=== PATIENT | female | born 1995 | race Caucasian/White ===

== ENCOUNTER 2016-09-15 19:56 | Emergency (ER) | payer BC, OTHER ==
[~2016-09-15] VITALS: Ht 182.9 cm; Wt 158.0 kg
[2016-09-15 20:04] VITALS: TEMP 36.6; Ht 182.9 cm; Wt 158.0 kg
[2016-09-15] MEDS ORDERED: SODIUM CHLORIDE 0.9% 1000ML 1,000 ML IV STA ×2 (20:32)
[2016-09-15] MEDS ORDERED: ONDANSETRON INJ 2 MG/ML 2 ML VIAL IV STA (20:32)
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
[2016-09-15] MEDS ORDERED: OPTIRAY 320 IV PRN (20:45)
[2016-09-15] MEDS ORDERED: LIDOCAINE/EPINEPHRINE 1% 20 ML VIAL INFIL ONE (20:45)
[2016-09-15] MEDS ORDERED: MoRPHine SULFATE 4 MG/ML 1 ML CARP\\VIAL IV PRN (20:45)
[2016-09-15] MEDS ORDERED: BCPILLS PO (21:01)
[2016-09-15] MEDS ORDERED: CETI10TA84 PO (21:01)
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
[2016-09-15 21:27] LABS: HEMATOCRIT 38.4 % (37-47); MEAN CELL VOLUME 81.4 fL (80-100); MEAN CORPUSCULAR HEMOGLOBIN 28.2 pg (25-34); MEAN CORPUSCULAR HGB CONC 34.6 g/dl (32-36); MEAN PLATELET VOLUME 10.6 fL (7.4-10.4); PLATELET COUNT 235 K/uL (130-400); RED BLOOD COUNT 4.72 M/uL (4.2-5.4); WHITE BLOOD COUNT 18.41 K/uL (4.8-10.8)
[2016-09-15 21:43] LABS: BUN/CREATININE RATIO 15.3 (10-20); CALCIUM 9.5 mg/dl (8.5-10.1); CREATININE 0.88 mg/dl (0.60-1.20); POTASSIUM 3.8 mmol/L (3.5-5.1)
[2016-09-15 21:45] LABS: BASO % 0.1 %; BASO ABS # 0.02 K/uL (0-0.2); COMPLETE YES; EOS % 0.2 %; IG% 0.3 %; LYMPH % 8.4 %; LYMPH ABS # 1.54 K/uL (1.2-3.4); MONO % 6.1 %; NEUT % 84.9 %
[2016-09-15 21:46] LABS: PROTHROMBIN TIME (PATIENT) 10.8 SECONDS (9.0-12.0)
[2016-09-15 22:06] LABS: PREG INTERNAL NEGATIVE QC NEG CLEAR BACKGROUND; PREG INTERNAL POSITIVE QC POS CONTROL LINE
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
[2016-09-15] MEDS ORDERED: CEPHALEXIN MONOHYDRATE 250 MG CAP PO ONE (23:15)
[2016-09-15] MEDS ORDERED: OXYCODONE IR HOME PACK PO ONE (23:15)
[2016-09-15] MEDS ORDERED: CEPHALEXIN 500MG HOME PACK 1 EA BTL PO ONE (23:15)
[2016-09-15] MEDS ORDERED: ONDANSETRON HOME PACK 4MG OD TAB PO ONE (23:15)
[2016-09-15 23:19] LABS: URINE APPEARANCE CLEAR (CLEAR); URINE COLOR DK YELLOW; URINE EPITHELIAL CELL AUTO >30 /lpf (0-5); URINE NITRITE NEG (NEG); URINE SPECIFIC GRAVITY > 1.045 (1.000-1.030); UROBILINOGEN NEG (NEG)
[2016-09-15] MEDS ORDERED: CEPH500C2 PO (23:19)
[2016-09-15] MEDS ORDERED: ONDA4TAB10 SL (23:19)
[2016-09-15] MEDS ORDERED: OXYC1TAB3 PO (23:19)
[2016-09-15 23:29] LABS: MANUAL MICROSCOPIC REQUIRED? NO; REVIEW REQ? YES; URINE BILIRUBIN NEG (NEG)
[2016-09-15 23:40] VITALS: BP 138/89; PULSE 87; O2SAT 97
[2016-09-15 23:50] LABS: URINE PATH CASTS 1-5 GRANULAR CASTS /lpf (0)
[2016-10-10] MEDS ORDERED: LVNIS150 SQ (13:53)
[2016-10-10] MEDS ORDERED: CMD5 PO (13:53)
== END 2016-09-15 23:41 | disposition home or self-care (01) ==
LOC: EDBD 19:56 → C.EDB 19:59
DX: S20.212A Contusion of left front wall of thorax, initial encounter (principal); S30.1XXA Contusion of abdominal wall, initial encounter; S27.329A Contusion of lung, unspecified, initial encounter; S81.812A Laceration without foreign body, left lower leg, initial encounter; S16.1XXA Strain of muscle, fascia and tendon at neck level, initial encounter; S32.018A Other fracture of first lumbar vertebra, initial encounter for closed fracture; S32.028A Other fracture of second lumbar vertebra, initial encounter for closed fracture; V43.52XA Car driver injured in collision with other type car in traffic accident, initial encounter; Z79.3 Long term (current) use of hormonal contraceptives

== ENCOUNTER 2016-10-09 18:58 | Inpatient (IN) | payer OTHER, BC ==
[~2016-10-09] VITALS: Ht 182.9 cm; Wt 158.2 kg
[~2016-10-09 18:58] MED LIST changes: -CMD5 PO; -IBUP-1050 PO; -LVNIS150 SQ; -OPTIRAY 320 IV PRN
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
[2016-10-09] MEDS ORDERED: IBUP-1050 PO (20:04)
[2016-10-09 21:10] LABS: HEMATOCRIT 34.7 % (37-47); MEAN CELL VOLUME 82.4 fL (80-100); MEAN CORPUSCULAR HEMOGLOBIN 28.7 pg (25-34); MEAN CORPUSCULAR HGB CONC 34.9 g/dl (32-36); MEAN PLATELET VOLUME 10.7 fL (7.4-10.4); PLATELET COUNT 204 K/uL (130-400); RED BLOOD COUNT 4.21 M/uL (4.2-5.4)
[2016-10-09 21:27] LABS: ALT/SGPT 20 U/L (12-78); BLOOD UREA NITROGEN 10 mg/dl (7-18); CALCIUM 9.5 mg/dl (8.5-10.1); CARBON DIOXIDE 21 mmol/L (21-32); CHLORIDE 108 mmol/L (98-107); CREATININE 0.72 mg/dl (0.60-1.20); GLUCOSE 87 mg/dl (70-99); SODIUM 142 mmol/L (136-145)
[2016-10-09 21:32] LABS: ALB/GLOB RATIO 0.8 (0.9-2); ALKALINE PHOSPHATASE 76 U/L (45-117); AST/SGOT 11 U/L (15-37)
[2016-10-10] MEDS ORDERED: CETIRIZINE HCL 10 MG TAB PO PRN (00:30)
[2016-10-10] MEDS ORDERED: ONDANSETRON INJ 2 MG/ML 2 ML VIAL IV PRN (00:30)
[2016-10-10] MEDS ORDERED: MAGNESIUM HYDROXIDE SUSP 30 ML UDC PO PRN (00:30)
[2016-10-10] MEDS ORDERED: ACETAMINOPHEN 325 MG TAB PO PRN (00:30)
[2016-10-10] MEDS ORDERED: POLYETHYLENE (MIRALAX) 17 GM PACK PO PRN (00:30)
[2016-10-10] MEDS ORDERED: MoRPHine SULFATE 2 MG/ML CARP IV PRN (00:30)
[2016-10-10] MEDS ORDERED: ZOLPIDEM TARTRATE 5 MG TAB PO PRN (00:30)
[2016-10-10] MEDS ORDERED: ALUMINUM/MAGNESIUM/SIMETH (MAALOX MAX) 30 ML UDC PO PRN (00:30)
[2016-10-10 01:46] VITALS: BP 159/101; PULSE 97; TEMP 36.8; O2SAT 99; Ht 182.9 cm; Wt 158.2 kg
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
[2016-10-10] MEDS ORDERED: ENOXAPARIN 150 MG/1ML SYR SQ ONE (02:00)
[2016-10-10 03:26] VITALS: BP 116/66; PULSE 104; TEMP 36.9; O2SAT 97
[2016-10-10 04:00] VITALS: O2SAT 97
--- NOTE | 2016-10-10 07:15 | DIAGNOSTIC IMAGING REPORT ---
ULTRASOUND BILATERAL LOWER EXTREMITY VENOUS CLINICAL HISTORY: Pulmonary embolus. COMPARISON STUDY: No priors. TECHNIQUE: Real-time, grayscale, and color Doppler sonography of the deep veins of the right and left lower extremity was performed from the inguinal crease to the calf. Compression and augmentation were utilized. FINDINGS: There is no sonographic evidence of deep venous thrombosis identified in the right or left lower extremity. The common femoral, superficial femoral, and popliteal veins are patent and normally compressible bilaterally. The greater saphenous vein and the profunda femoris vein at the junction with the common femoral vein are clear in both legs. The visualized calf veins are patent bilaterally. IMPRESSION: There is no sonographic evidence of deep venous thrombosis identified in the right or left lower extremity. Electronically signed by: Sarkis Hampton M.D. 10/10/2016 7:13 AM Dictated Date/Time: 10/10/2016 7:13 AM
[2016-10-10 10:06] LABS: PROTHROMBIN TIME (PATIENT) 11.2 SECONDS (9.0-12.0)
[2016-10-10 12:19] VITALS: BP 152/88; PULSE 95; TEMP 36.7; O2SAT 98
[2016-10-10] MEDS ORDERED: CMD5 PO (13:53)
[2016-10-10] MEDS ORDERED: LVNIS150 SQ (13:53)
--- NOTE | 2016-10-10 14:00 | Discharge Instructions ---
Discharge Instructions Admission Reason for Admission: Pulmonary Emboli Discharge Discharge Diagnosis / Problem: (1) Pulmonary emboli VTE Date & Time Date of VTE Diagnosis: Oct 09, 2016 Time of VTE Diagnosis: 18:32 Discharge Goals Goal(s): Decrease discomfort, Improve function, Increase independence Activity Recommendations Activity Limitations: resume your previous activity (with light lifting and no major exertion for the next 1-2 weeks) . Instructions / Follow-Up Instructions / Follow-Up You will take 10mg of coumadin prior to leaving the hospital today. Do not take any more coumadin today. You will need to take another lovenox injection tonight, roughly 12 hours after the last injection that you had at the hospital today. Tomorrow you will continue taking the lovenox every 12 hours. You will take another 10mg coumadin tomorrow. On Thursday, you should have your labs drawn in the morning. They will call me with the results and I will call you to inform you what dosing you will take on Thursday. If you do not hear from me by 2pm, please call [facility] and ask for them to page me directly. Dr. Jimenes next week Medication Instructions: * Warfarin is a medicine prescribed to prevent blood clots * Warfarin will thin your blood and help prevent new clots * Take your medications exactly as directed * Never skip a dose. Never take a double dose. If you miss a dose, take it as soon as you remember * It is important for your doctor to monitor your prothrombin time (PT). This is a lab test * Keep your appointment for lab tests Risk of Adverse Drug Reactions and Interactions: * Warfarin increases your risk of bleeding * The food you eat and other medications you take can affect how Warfarin works in your body * Ask your doctor about daily aspirin therapy * It is very important to talk with your doctor about all of the other medicines , antibiotics, vitamins or herbal products that you are taking * All of your medication must be approved by your doctor, including new medicines, as well as medicines you have taken before you started taking Warfarin Diet: * In order for Warfarin to work properly, it is important to keep your intake of Vitamin K as consistent as possible * You should avoid any sudden change in Vitamin K intake * Report any significant changes in your diet or weight to your doctor Call your Primary Care doctor if you experience any of the following: * Swelling or Pain in your leg * Sudden, continuous pain deep in a muscle * Pain that worsens when you are active or when you stand still for a long time * Chest Pain * Sudden Shortness of Breath * Rapid or pounding heart beat * Fainting * Dizziness * Cough with blood or bloody sputum * Sweating more than normal * Bruises * Heavy or uncontrolled bleeding * Blood in your urine, stool or vomit * Black or tarry stools Caring for Your Self at Home: * Avoid sitting, standing or lying down for long periods without moving your legs and feet * When traveling by car, stop to get out and move around at least once every 3 hours * On long airplane, train or bus rides, get up and move around when possible * If you can't get up, wiggle your toes and tighten your calves to keep your blood moving Follow Up: It is important for you to keep your follow up appointments with your medical provider. Current Hospital Diet Patient's current hospital diet: Regular Diet Discharge Diet Recommended Diet: Regular Diet Pending Studies Studies pending at discharge: yes (partial hypercoag panel) List of pending studies: von Willebrand factor, Factor V panel Medical Emergencies . Who to Call and When: Medical Emergencies: If at any time you feel your situation is an emergency, please call 911 immediately. . Non-Emergent Contact Non-Emergency issues call your: Primary Care Provider . . "Provider Documentation" section prepared by Roasnne Gaitan. VTE Core Measure Inpt VTE Proph given/why not?: Enoxaparin (Lovenox)SQ, Warfarin (Coumadin) Reason no anticoag overlap I/P: Treatment provided - N/A Reason no anticoag overlap @DC: Treatment provided - N/A
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
[2016-10-10] MEDS ORDERED: NURSING VERBAL MED ORDER ONE (14:30)
[2016-10-10] MEDS ORDERED: WARFARIN SOD 5 MG TAB PO SCH ×2 (16:00)
[2016-10-10] MEDS ORDERED: ENOXAPARIN 150 MG/1ML SYR SQ SCH (18:00)
--- NOTE | 2016-10-12 14:19 | Progress Note ---
Progress Note INR 1.1 on 10mg coumadin since d/c Continue 10mg coumadin and lovenox Repeat INR tomorrow, 10/[address] Jimenes's office Pt informed that if she does not hear from anyone tomorrow, to call Dr. Jimenes's office in the afternoon.
[2016-10-17 17:38] LABS: APTT 26 sec (22-34); F8 ACT 199 % (50-180); RISTOCETIN COFACTOR** 4459X 135 % (42-200)
== END 2016-10-10 15:10 | disposition home or self-care (01) | DRG 176 ==
LOC: ENRESERVTM → ENRESERVDT → C.EDB 19:00 → C.2T 10-10 00:31
PROVIDERS: ADMIT Internal Medicine; ATTEND Family Medicine
DX: I26.99 Other pulmonary embolism without acute cor pulmonale (principal); Z68.42 Body mass index [BMI] 45.0-49.9, adult; E66.01 Morbid (severe) obesity due to excess calories; Z79.3 Long term (current) use of hormonal contraceptives; Z83.2 Family history of diseases of the blood and blood-forming organs and certain disorders involving the immune mechanism

== ENCOUNTER → 2016-10-09 | Outpatient (CLI) | payer OTHER, BC ==
[~2016-10-09] MED LIST: BCPILLS PO; CEPH500C2 PO; CETI10TA84 PO; CMD5 PO; IBUP-1050 PO; LVNIS150 SQ; ONDA4TAB10 SL; OPTIRAY 320 IV PRN; OXYC1TAB3 PO
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
== END | disposition home or self-care (01) ==
LOC: C.CTS 18:02
PROVIDERS: ATTEND Family Medicine
DX: R06.02 Shortness of breath (principal); R07.9 Chest pain, unspecified; V89.2XXA Person injured in unspecified motor-vehicle accident, traffic, initial encounter; I26.99 Other pulmonary embolism without acute cor pulmonale

== ENCOUNTER 2023-03-26 20:55 | Observation (INO) ==
[2023-03-26] MEDS ORDERED: SODIUM CHLORIDE 0.9% 1000ML 500 ML IV ONE (21:04)
[2023-03-26] MEDS ORDERED: ONDANSETRON INJ 2 MG/ML 2 ML VIAL IV STA (21:04)
[2023-03-26] MEDS ORDERED: KETOROLAC TROMETHAMINE 15 MG/ML VIAL IV STA (21:17)
--- NOTE | 2023-03-26 21:21 | Emergency Department Note ---
History of Present Illness General Chief Complaint: Abdominal Pain Stated Complaint: ABD PAIN, NAUSEA, BLOATED Time Seen by Provider: 03/26/23 21:02 History of Present Illness Provider Complaint: abdominal pain Onset (ago): 1 week(s) Pain Consistency: intermittent Location: epigastric Radiation: RUQ Severity: moderate Maximum Pain Intensity: 8 Current Pain Intensity: 8 Quality: + stabbing and + sharp Relieved By: + nothing Exacerbated By: + nothing Context: no foreign travel, no possible food poisoning, no recent antibiotic use or no recent surgery/procedure Associated Symptoms: + nausea, + vomiting and + diarrhea; no fever, no chills, no constipation, no dysuria, no hematemesis, no hematochezia, no melena, no hematuria, no headache and no breathing difficulty Home Medications Medication Instructions Recorded Confirmed Type Rosamaria's Allergy Med 1 tab PO DAILY PRN Congestion 03/26/23 03/26/23 History escitalopram oxalate 10 mg tablet 10 mg PO DAILY 03/26/23 03/26/23 History famotidine 20 mg tablet 20 mg PO QAM 03/26/23 03/26/23 History medroxyprogesterone 150 mg/mL 150 mg IM DIRECTED 03/26/23 03/26/23 History intramuscular suspension semaglutide (weight loss) 2.4 2.4 mg subcut WK 03/26/23 03/26/23 History mg/0.75 mL subcutaneous pen injector (Wegovy) Allergies Allergy/AdvReac Type Severity Reaction Status Date / Time No Known Allergies Allergy Verified 03/26/23 21:19 Past Med/Surg History Medical History No pertinent family history Pulmonary embolism S/P tonsillectomy and adenoidectomy Social History Smoking Status: Never smoker Preferred Language: Swedish Feels Safe at Home: Yes Physical Exam Vital Signs: Vital Signs - 24 hr 03/26/23 20:57 03/26/23 21:32 03/26/23 22:49 Temperature 36.8 C Temperature Source Temporal Artery Sc an Pulse Rate 111 H 113 H Pulse Rate [Apical ] 96 H Respiratory Rate 16 24 Respiratory Effort / Characteristics Non-Labored Sponta neous Non-Labored Sponta neous Respiratory Depth Normal Normal Respiratory Patter n Regular Regular Blood Pressure 142/85 H Blood Pressure [Le ft Arm] 113/74 Blood Pressure Liat n 104 Blood Pressure Liat n [Left Arm] 87 Blood Pressure Pos ition Sitting Pulse Oximetry 98 97 Oxygen Delivery Me thod Room Air Room Air Sepsis Recent Feve r Within 48 Hours No Sepsis New/Unexpla ined Change in Men gregg Status No Sepsis Action Take n by Nursing No Action Required 03/26/23 22:51 Temperature Temperature Source Pulse Rate Pulse Rate [Apical ] Respiratory Rate Respiratory Effort / Characteristics Respiratory Depth Respiratory Patter n Blood Pressure Blood Pressure [Le ft Arm] Blood Pressure Liat n Blood Pressure Liat n [Left Arm] Blood Pressure Pos ition Pulse Oximetry 97 Oxygen Delivery Me thod Room Air Sepsis Recent Feve r Within 48 Hours Sepsis New/Unexpla ined Change in Men gregg Status Sepsis Action Take n by Nursing Physical Exam: Physical Exam GENERAL: She is oriented to person, place, and time. She appears well-developed and well-nourished. She does not appear distressed. HENT: Exam performed. -Head: Normocephalic and atraumatic. -Right Ear: External ear normal. No mastoid erythema -Left Ear: External ear normal. No mastoid erythema -Mouth/Throat: The oropharynx is clear and moist. No trismus in the jaw. No dental abscesses or uvula swelling. No oropharyngeal exudate or tonsillar abscesses. EYES: Conjunctivae and EOM are normal.Right eye exhibits no discharge. Left eye exhibits no discharge. No scleral icterus. NECK: Normal range of motion. Neck supple. No JVD present. No tracheal deviation and normal range of motion present. CV: Normal rate, regular rhythm, normal heart sounds and intact distal pulses. There is no peripheral edema. Palpable radial pulses bue. PULM/CHEST: Effort normal and breath sounds normal. No respiratory distress. No stridor. She has no wheezes. She has no rales. -Chest Wall: She exhibits no tenderness. ABD: The abdomen is soft. Bowel sounds are normal. She has no distension. No mass is present. There is tenderness to palpation of the right upper quadrant and epigastric area. There is no rebound, no guarding, no Isaacs's sign and no tenderness at McBurney's point. Rovsig negative MUSC/SKEL: Normal range of motion. There is no peripheral edema, tenderness or deformity. NEURO: Motor and sensation grossly intact. SKIN: Skin is warm and dry. She is not diaphoretic. PSYCH: She has a normal mood and affect. Behavior is normal. Judgment and thought content normal. Course Course 2101: The patient was evaluated in room B10. A complete history and physical exam was performed Cardiac monitoring: An order was placed for continuous cardiac monitoring. The monitor shows a rate of 110 with sinus rhythm interpreted by me 2343: Vital signs stable. Labs show leukocytosis of 13. LFTs and lipase are within normal limits. Acute abdominal series negative. Ultrasound of the gallbladder shows cholelithiasis and biliary sludge with distended and mildly thickened gallbladder wall. Formal radiology read states an acute cholecystitis cannot be excluded and a HIDA scan should be considered. General surgery was consulted. Patient was evaluate by general surgery in the emergency department Alfredo ARCHIBALD for Dr. Ramsay. Patient will be admitted to their service. Rocephin and Flagyl ordered for the patient. Administered Medications Ceftriaxone Sodium (Rocephin) 2,000 mg in 70 mls @ 140 mls/hr IV NOW STA Stop: 03/26/23 23:49 Last Admin: 03/26/23 23:36 Dose: 140 mls/hr Documented By: MED Discontinued Medications Sodium Chloride (Nss 1000ml) 500 mls @ 999 mls/hr IV .Q31M ONE Stop: 03/26/23 21:34 Last Infusion: 03/26/23 22:39 Dose: 0 mls/hr Documented By: curriculum developer: 03/26/23 21:53 Dose: 999 mls/hr Documented By: MED Ketorolac Tromethamine (Ketorolac Tromethamine 15 Mg/Ml Vial) 15 mg IV NOW STA Stop: 03/26/23 21:18 Last Admin: 03/26/23 21:55 Dose: 15 mg Documented By: MED Ondansetron HCl (Ondansetron Inj 2 Mg/Ml 2 Ml Vial) 4 mg IV NOW STA Stop: 03/26/23 21:05 Last Admin: 03/26/23 21:57 Dose: 4 mg Documented By: MED Medical Decision Making Laboratory Data Attestation: I reviewed the patient's lab results. 03/26/23 21:47 03/26/23 21:47 Lab Results 03/26/23 03/26/2323 Range/Units 21:24 21:47 21:47 WBC 13.46 H (4.8-10.8) K/ul RBC 5.28 (4.20-5.40) M/uL Hgb 15.4 (12.0-16.0) g/dl Hct 43.6 (37.0-47.0) % MCV 82.6 (80.0-100.0) fL MCH 29.2 (25.0-34.0) pg MCHC 35.3 (32.0-36.0) g/dL RDW Std Deviation 38.0 (36.4-46.3) fL RDW Coeff of Alesia 12.7 (11.5-14.5) % Plt Count 290 (130-400) K/uL MPV 11.4 (9.4-12.4) fL Immature Gran % (Auto) 0.4 % Neut % (Auto) 84.3 % Lymph % (Auto) 7.9 % Stephenson % (Auto) 5.9 % Eos % (Auto) 1.3 % Baso % (Auto) 0.2 % Neut # (Auto) 11.36 H (1.40-6.50) K/uL Lymph # (Auto) 1.06 L (1.2-3.4) K/uL Stephenson # (Auto) 0.79 H (0.11-0.59) K/uL Eos # (Auto) 0.17 (0-0.50) K/uL Baso # (Auto) 0.03 (0-0.2) K/uL Immature Gran # (Auto) 0.05 (0.01-0.20) K/uL PT 11.4 (9.0-12.0) Seconds INR 1.0 (0.9-1.1) APTT 27.2 (21.0-31.0) Seconds PTT Ratio 1.0 Sodium (136-145) mmol/L Potassium (3.5-5.1) mmol/L Chloride (98-107) mmol/L Carbon Dioxide (21-32) mmol/L Anion Gap (3-11) BUN (6-23) mg/dl Creatinine (0.6-1.2) mg/dl Est Cr Clr Drug Dosing ml/min Est GFR ( Amer) ml/min Est GFR (Non-Af Amer) ml/min BUN/Creatinine Ratio (10-20) Glucose (70-99(Fasting)) mg/dl Calcium (8.6-10.3) mg/dl Total Bilirubin (0.2-1.0) mg/dl Direct Bilirubin (0-0.2) mg/dl AST (13-39) U/L ALT (7-52) U/L Alkaline Phosphatase (34-104) U/L Total Protein (6.0-8.3) gm/dl Albumin (3.4-5.0) gm/dl Lipase (11-82) U/L Urine Test Negative (Negative) 03/26/23 Range/Units 21:47 WBC (4.8-10.8) K/ul RBC (4.20-5.40) M/uL Hgb (12.0-16.0) g/dl Hct (37.0-47.0) % MCV (80.0-100.0) fL MCH (25.0-34.0) pg MCHC (32.0-36.0) g/dL RDW Std Deviation (36.4-46.3) fL RDW Coeff of Alesia (11.5-14.5) % Plt Count (130-400) K/uL MPV (9.4-12.4) fL Immature Gran % (Auto) % Neut % (Auto) % Lymph % (Auto) % Stephenson % (Auto) % Eos % (Auto) % Baso % (Auto) % Neut # (Auto) (1.40-6.50) K/uL Lymph # (Auto) (1.2-3.4) K/uL Stephenson # (Auto) (0.11-0.59) K/uL Eos # (Auto) (0-0.50) K/uL Baso # (Auto) (0-0.2) K/uL Immature Gran # (Auto) (0.01-0.20) K/uL PT (9.0-12.0) Seconds INR (0.9-1.1) APTT (21.0-31.0) Seconds PTT Ratio Sodium 138 (136-145) mmol/L Potassium 3.9 (3.5-5.1) mmol/L Chloride 109 H (98-107) mmol/L Carbon Dioxide 18 L (21-32) mmol/L Anion Gap 11 (3-11) BUN 12 (6-23) mg/dl Creatinine 0.79 (0.6-1.2) mg/dl Est Cr Clr Drug Dosing 186.2 ml/min Est GFR ( Amer) 117.2 ml/min Est GFR (Non-Af Amer) 101.2 ml/min BUN/Creatinine Ratio 15.2 (10-20) Glucose 112 H (70-99(Fasting)) mg/dl Calcium 9.6 (8.6-10.3) mg/dl Total Bilirubin 0.6 (0.2-1.0) mg/dl Direct Bilirubin 0.1 (0-0.2) mg/dl AST 12 L (13-39) U/L ALT 21 (7-52) U/L Alkaline Phosphatase 64 (34-104) U/L Total Protein 7.6 (6.0-8.3) gm/dl Albumin 4.3 (3.4-5.0) gm/dl Lipase 23 (11-82) U/L Urine Test (Negative) Imaging Data Attestation: I personally reviewed and interpreted this imaging study as follows: My Impression: Acute abdominal series: Chest x-ray negative. Airway clear. No pneumothorax. No consolidation. No cardiomegaly or cephalization.. No free air under the diaphragm. No fractures of the skeletal structures. No air-fluid levels nonspecific bowel gas pattern. Radiologist's Impression: Chest/Abdomen X-ray 03/26/23 21:17 PA CHEST WITH ABDOMINAL SERIES CLINICAL HISTORY: Epigastric abdominal pain FINDINGS: A PA chest radiograph is correlated with chest CT dated 10/09/2016. The cardiomediastinal silhouette is unremarkable. The lungs and pleural spaces are clear. No pneumothorax is seen. The bony thorax is grossly intact. Supine and erect abdominal radiographs are correlated with abdominal CT dated 09/15/2016. There is a nonobstructed abdominal bowel gas pattern. No evidence of intraperitoneal free air is seen. There are no abnormal abdominal calcifications. The lumbosacral spine and bony pelvis appear intact. IMPRESSION: 1. No active disease in the chest. 2. Nonobstructed abdominal bowel gas pattern. ACT 112: Negative or not required by law. Electronically signed by: Sarkis Hampton M.D. 03/26/2023 10:17 PM Gallbladder Ultrasound 03/26/23 21:17 ULTRASOUND RIGHT UPPER QUADRANT ABDOMEN CLINICAL HISTORY: Right upper quadrant and epigastric abdominal pain. COMPARISON STUDY: Abdominal radiograph dated 03/26/2023. CT dated 09/15/2016. TECHNIQUE: Real-time, grayscale, and color flow sonography of the right upper quadrant of the abdomen was performed. Images are reviewed in the transverse and longitudinal planes. FINDINGS: Liver: The liver is enlarged and demonstrates heterogeneously increased echotexture indicating steatosis. There is no intrahepatic biliary ductal dilatation. The main portal vein is patent. Gallbladder: The gallbladder is distended and contains shadowing gallstones as well as biliary sludge. The gallbladder wall is mildly thickened measuring up to 4 mm. No pericholecystic fluid. A sonographic Isaacs's sign could not be assessed as the patient received analgesia. The common bile duct measures up to 0.5 cm in diameter. Pancreas: Visualized portions of the pancreatic head and body are normal in appearance. The splenic vein is patent. Right kidney: Survey images of the right kidney demonstrate normal size and echotexture. There is no hydronephrosis. Ascites: None. IMPRESSION: 1. Cholelithiasis and biliary sludge within a distended and mildly thick-walled gallbladder. Acute cholecystitis is not excluded. Correlate with clinical and laboratory findings. If warranted a nuclear hepatobiliary scan could be considered for further assessment. 2. There is no intra or extrahepatic biliary ductal dilatation. 3. Hepatomegaly and hepatic steatosis. ACT 112: Negative or not required by law. Electronically signed by: Sarkis Hampton M.D. 03/26/2023 11:04 PM [place] Narrative 2102: The patient was evaluated in room B10. A complete history and physical exam was performed Cardiac monitoring: An order was placed for continuous cardiac monitoring. The monitor shows a rate of 110 with sinus rhythm interpreted by co 2343: Vital signs stable. Labs show leukocytosis of 13. LFTs and lipase are within normal limits. Acute abdominal series negative. Ultrasound of the gallbladder shows cholelithiasis and biliary sludge with distended and mildly thickened gallbladder wall. Formal radiology read states an acute cholecystitis cannot be excluded and a HIDA scan should be considered. General surgery was consulted. Patient was evaluate by general surgery in the emergency department Alfredo ARCHIBALD for Dr. Ramsay. Patient will be admitted to their service. Rocephin and Flagyl ordered for the patient. Impression & Plan Acute cholecystitis Discharge Plan Visit Data Chief Complaint: Abdominal Pain Stated Complaint: ABD PAIN, NAUSEA, BLOATED ED Provider: Neal Poe Discharge Problem: Acute cholecystitis Patient Disposition: Being Evaluated by Surgeon Forms Stand Alone Forms: [facility] Prescriptions Prescriptions: No Action famotidine 20 mg tablet 20 mg PO QAM medroxyprogesterone 150 mg/mL suspension 150 mg IM DIRECTED escitalopram oxalate 10 mg tablet 10 mg PO DAILY Wegovy 2.4 mg/0.75 mL pen injector 2.4 mg SUBCUT WK Rx Instructions: THURSDAY Rosamaria's Allergy Med 1 tab PO DAILY PRN (Reason: Congestion) Referrals Referrals: PCP,NO [Physician] -
[2023-03-26 21:42] LABS: Pregnancy Test, Urine Negative (Negative)
--- NOTE | 2023-03-26 22:18 | XRay Report ---
PA CHEST WITH ABDOMINAL SERIES CLINICAL HISTORY: Epigastric abdominal pain FINDINGS: A PA chest radiograph is correlated with chest CT dated 10/09/2016. The cardiomediastinal silhouette i s unremarkable. The lungs and pleural spaces are clear. No pneumothorax is seen. The bony thorax is g rossly intact. Supine and erect abdominal radiographs are correlated with abdominal CT dated 09/15/2016. There is a n onobstructed abdominal bowel gas pattern. No evidence of intraperitoneal free air is seen. There are no abnormal abdominal calcifications. The lumbosacral spine and bony pelvis appear intact. IMPRESSION: 1. No active disease in the chest. 2. Nonobstructed abdominal bowel gas pattern. ACT 112: Negative or not required by law. Electronically signed by: Sarkis Hampton M.D. 03/26/2023 10:17 PM
[2023-03-26 22:25] LABS: Basophils # (auto) 0.03 K/uL (0-0.2); Basophils % (auto) 0.2 %; Eosinophils # (auto) 0.17 K/uL (0-0.50); Eosinophils % (auto) 1.3 %; Hematocrit (blood only) 43.6 % (37.0-47.0); Hemoglobin 15.4 g/dl (12.0-16.0); Immature Granulocytes # (auto) 0.05 K/uL (0.01-0.20); Immature Granulocytes % (auto) 0.4 %; Lymphocytes # (auto) 1.06 K/uL (1.2-3.4); Lymphocytes % (auto) 7.9 %; Mean Corpuscular Hemoglobin 29.2 pg (25.0-34.0); Mean Corpuscular Hgb Conc 35.3 g/dL (32.0-36.0); Mean Corpuscular Volume 82.6 fL (80.0-100.0); Mean Platelet Volume 11.4 fL (9.4-12.4); Monocytes # (auto) 0.79 K/uL (0.11-0.59); Monocytes % (auto) 5.9 %; Neutrophils # (auto) 11.36 K/uL (1.40-6.50); Neutrophils % (auto) 84.3 %; Platelet Count 290 K/uL (130-400); RDW Coefficient of Variation 12.7 % (11.5-14.5); Red Blood Count 5.28 M/uL (4.20-5.40); White Blood Count 13.46 K/ul (4.8-10.8)
[2023-03-26 22:40] LABS: Albumin Level 4.3 gm/dl (3.4-5.0); BUN Creatinine Ratio 15.2 (10-20); Bilirubin Direct 0.1 mg/dl (0-0.2); Bilirubin,Total 0.6 mg/dl (0.2-1.0); Calcium 9.6 mg/dl (8.6-10.3); Creatinine Clr Calc Pharmacy 186.2 ml/min; Est GFR (African American) 117.2 ml/min; Est GFR (Non-African American) 101.2 ml/min; Potassium 3.9 mmol/L (3.5-5.1); Total Protein 7.6 gm/dl (6.0-8.3)
[2023-03-26 22:55] LABS: Partial Thromboplastin Time 27.2 Seconds (21.0-31.0); Prothrombin Time 11.4 Seconds (9.0-12.0)
--- NOTE | 2023-03-26 23:06 | Ultrasound Report ---
ULTRASOUND RIGHT UPPER QUADRANT ABDOMEN CLINICAL HISTORY: Right upper quadrant and epigastric abdominal pain. COMPARISON STUDY: Abdominal radiograph dated 03/26/2023. CT dated 09/15/2016. TECHNIQUE: Real-time, grayscale, and color flow sonography of the right upper quadrant of the abdomen was performed. Images are reviewed in the transverse and longitudinal planes. FINDINGS: Liver: The liver is enlarged and demonstrates heterogeneously increased echotexture indicating steato sis. There is no intrahepatic biliary ductal dilatation. The main portal vein is patent. Gallbladder: The gallbladder is distended and contains shadowing gallstones as well as biliary sludge . The gallbladder wall is mildly thickened measuring up to 4 mm. No pericholecystic fluid. A sonograp hic Isaacs's sign could not be assessed as the patient received analgesia. The common bile duct measu res up to 0.5 cm in diameter. Pancreas: Visualized portions of the pancreatic head and body are normal in appearance. The splenic v ein is patent. Right kidney: Survey images of the right kidney demonstrate normal size and echotexture. There is no hydronephrosis. Ascites: None. IMPRESSION: 1. Cholelithiasis and biliary sludge within a distended and mildly thick-walled gallbladder. Acute ch olecystitis is not excluded. Correlate with clinical and laboratory findings. If warranted a nuclear hepatobiliary scan could be considered for further assessment. 2. There is no intra or extrahepatic biliary ductal dilatation. 3. Hepatomegaly and hepatic steatosis. ACT 112: Negative or not required by law. Electronically signed by: Sarkis Hampton M.D. 03/26/2023 11:04 PM
[2023-03-26] MEDS ORDERED: cefTRIAXone SODIUM 2,000 MG/70 ML BAG IV STA (23:20)
[2023-03-26] MEDS ORDERED: metroNIDAZOLE 500 MG/100 ML BAG IV STA (23:20)
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
[2023-03-27] MEDS ORDERED: ONDANSETRON INJ 2 MG/ML 2 ML VIAL IV STA ×2
[2023-03-27] MEDS ORDERED: ONDANSETRON INJ 2 MG/ML 2 ML VIAL ONE ×2 (00:04→12:25)
[2023-03-27 00:34] LABS: Appearance Urine Cloudy (Clear); Bilirubin Urine 1+ (Negative); Blood Urine Negative (Negative); Color Urine Yellow; Glucose Urine UA Negative (Negative); Ketones Urine Negative (Negative); Leukocyte Esterase Urine Negative (Negative); Nitrite Urine Negative (Negative); Protein Urine Trace (Negative); Specific Gravity Urine >= 1.030 (1.000-1.030); Urobilinogen Urine Negative (Negative)
[2023-03-27 00:43] LABS: Amorphous Sediment Urine Present (None Prsent); Epithelial Cell Urine 20-30 /lpf (0-5)
[2023-03-27 00:44] LABS: Bacteria Urine 3+ (Negative); RBC Urine 0-4 /hpf (0-4); WBC Urine 0-5 /hpf (0-5)
[2023-03-27] MEDS ORDERED: ONDANSETRON INJ 2 MG/ML 2 ML VIAL IV PRN ×2 (01:13→12:09)
[2023-03-27] MEDS ORDERED: MoRPHine SULFATE 4 MG/ML 1 ML CARP\\VIAL IV PRN (01:13)
[2023-03-27] MEDS ORDERED: ACETAMINOPHEN 1,000 MG/100 ML VIAL IV PRN (01:13)
[2023-03-27] MEDS: LACTATED RINGER'S 1,000 ML IV SCH ×2 (01:20→16:50)
[2023-03-27 06:26] LABS: Basophils # (auto) 0.02 K/uL (0-0.2); Basophils % (auto) 0.2 %; Eosinophils # (auto) 0.23 K/uL (0-0.50); Eosinophils % (auto) 2.3 %; Hematocrit (blood only) 44.2 % (37.0-47.0); Hemoglobin 15.2 g/dl (12.0-16.0); Immature Granulocytes # (auto) 0.04 K/uL (0.01-0.20); Immature Granulocytes % (auto) 0.4 %; Lymphocytes # (auto) 1.15 K/uL (1.2-3.4); Lymphocytes % (auto) 11.4 %; Mean Corpuscular Hemoglobin 29.2 pg (25.0-34.0); Mean Corpuscular Hgb Conc 34.4 g/dL (32.0-36.0); Mean Platelet Volume 11.3 fL (9.4-12.4); Monocytes # (auto) 0.59 K/uL (0.11-0.59); Monocytes % (auto) 5.8 %; Neutrophils % (auto) 79.9 %; Platelet Count 259 K/uL (130-400); RDW Coefficient of Variation 12.7 % (11.5-14.5); RDW Standard Deviation 39.3 fL (36.4-46.3); White Blood Count 10.13 K/ul (4.8-10.8)
[2023-03-27 06:35] LABS: Albumin Globulin Ratio 1.3 (0.9-2); Albumin Level 3.7 gm/dl (3.4-5.0); BUN Creatinine Ratio 14.9 (10-20); Bilirubin,Total 0.5 mg/dl (0.2-1.0); Creatinine Clr Calc Pharmacy 169.1 ml/min; Est GFR (African American) 104.3 ml/min; Globulin 2.9 gm/dl (2.5-4.0); Potassium 3.8 mmol/L (3.5-5.1); Total Protein 6.6 gm/dl (6.0-8.3)
[2023-03-27] MEDS ORDERED: FAMOTIDINE 20 MG TAB PO SCH (09:00)
[2023-03-27] MEDS ORDERED: ESCITALOPRAM OXALATE 10 MG TAB PO SCH (09:00)
--- NOTE | 2023-03-27 09:37 | Anesthesiology Consultation ---
Date of Service March 27, 2023 Assessment & Plan Chart Review Chart Review: Acceptable Risk for Surgery Consults Requested none ASA ASA3 Proposed Anesthesia Anesthesia Type: General (RSI) Risk / Benefits Reviewed With: PT / POA / Parent / Guardian, Accepts Plan and Informed Consent Obtained Additional Comments: rsi History Surgery Operation Date: 03/27/23 08:45 Proposed Procedures p Laparoscopic Cholecystectomy - Vance Ramsay DO Height/Weight Height: 6 ft Weight: 171 kg Allergies Allergy/AdvReac Type Severity Reaction Status Date / Time No Known Allergies Allergy Verified 03/26/23 21:19 Medications Home Medications Medication Instructions Recorded Confirmed Last Taken Rosamaria's Allergy Med 1 tab PO DAILY PRN Congestion 03/26/23 03/26/23 Unknown escitalopram oxalate 10 mg tablet 10 mg PO DAILY 03/26/23 03/26/23 03/25/23 famotidine 20 mg tablet 20 mg PO QAM 03/26/23 03/26/23 03/26/23 medroxyprogesterone 150 mg/mL 150 mg IM DIRECTED 03/26/23 03/26/23 03/02/23 intramuscular suspension semaglutide (weight loss) 2.4 2.4 mg subcut WK 03/26/23 03/26/23 03/25/23 mg/0.75 mL subcutaneous pen injector (Olivia) Active Medications Generic Name Dose Route Start Last Admin Trade Name Freq PRN Reason Stop Dose Admin Escitalopram Oxalate 10 mg 03/27/23 09:00 03/27/23 08:32 Escitalopram Oxalate 10 Mg Tab PO 04/26/23 08:59 10 mg DAILY BINTA Administration Famotidine 20 mg 03/27/23 09:00 03/27/23 08:32 Famotidine 20 Mg Tab PO 04/26/23 08:59 20 mg QAM BINTA Administration Lactated Ringer's 1,000 mls @ 75 mls/hr 03/27/23 01:13 03/27/23 01:20 Lr IV 04/26/23 01:12 75 mls/hr .[id number] BINTA Administration Metronidazole 500 mg in 100 mls @ 100 mls/hr 03/27/23 10:00 03/27/23 10:14 Flagyl IV 04/06/23 09:59 Infused Q8H BINTA Infusion Protocol NPO Date Last Intake of Fluids: 03/26/23 Time Last Intake of Fluids: 23:59 Date Last Intake of Solids: 03/26/23 Time Last Intake of Solids: 23:59 Past Medical History Medical History (Updated 03/27/23 @ 09:36 by Kelsey Bain DO) Morbid obesity No pertinent family history Pulmonary embolism Exercise / Class Metabolic Activity II 4-5 Yardwork/Stairs/Walk up hill Past Surgical History Surgical History (Updated 03/27/23 @ 12:13 by Kelsey Bain DO) H/O plastic surgery Dog bite with laceration repair H/O wisdom tooth extraction S/P tonsillectomy and adenoidectomy last wegovy 03/25/23 Past Anesthesia History No Hx of Anesthesia Complications and No Family Hx of Anesthesia Complications History of PONV No Hx of Motion Sickness and History of PONV Social History Smoking Status: Never smoker Hx Alcohol Use: Yes Alcohol type: other alcohol intake frequency: holidays/special occasions only Hx Substance Use: No Physical Exam Vital Signs Last Vital Signs Temp 36.8 C 03/27/23 12:01 Pulse 92 H 03/27/23 12:01 Resp 20 03/27/23 12:01 BP 114/96 03/27/23 12:01 Pulse Ox 96 03/27/23 12:01 O2 Del Method Room Air 03/27/23 12:01 Constitutional + morbidly obese ENMT Mouth: no TMJ abnormality Thyromental Distance: > or= 3.5 Finger Breadths Mallampati Class: III Neck normal visual inspection and trachea midline; neck extension not limited Respiratory normal respiratory effort Auscultation: lungs clear to auscultation bilaterally Cardiovascular Rate/Rhythm: regular rate and regular rhythm Heart Sounds: no murmur Musculoskeletal Spine: normal cervical ROM Extremities: full ROM of extremities Neurologic moves all extremities Psychiatric Orientation: alert and oriented x 3 Testing Laboratory Results 03/27/23 05:59 03/27/23 05:59 PT 11.4 Seconds (9.0-12.0) 03/26/23 21:47 INR 1.0 (0.9-1.1) 03/26/23 21:47 APTT 27.2 Seconds (21.0-31.0) 03/26/23 21:47 Urine Color Yellow 03/26/23 21:24 Urine Appearance Cloudy (Clear) A 03/26/23 21:24 Urine pH 5.0 (4.5-7.5) 03/26/23 21:24 Ur Specific [place] >= 1.030 (1.000-1.030) 03/26/23 21:24 Urine Protein Trace (Negative) H 03/26/23 21:24 Urine Glucose (UA) Negative (Negative) 03/26/23 21:24 Urine Ketones Negative (Negative) 03/26/23 21:24 Urine Nitrite Negative (Negative) 03/26/23 21:24 Ur Leukocyte Esterase Negative (Negative) 03/26/23 21:24 Urine RBC 0-4 /hpf (0-4) 03/26/23 21:24 Urine WBC 0-5 /hpf (0-5) 03/26/23 21:24 Ur Epithelial Cells 20-30 /lpf (0-5) H 03/26/23 21:24 Urine Test Negative (Negative) 03/26/23 21:24 03/27/23 03/26/23 04:01 21:24 Urine Test Negative POC Ur Test Cancelled
[2023-03-27] MEDS ORDERED: metroNIDAZOLE 500 MG/100 ML BAG IV SCH (10:00)
[2023-03-27] MEDS ORDERED: MoRPHine SULFATE 10 MG/ML CARP/VIAL IV PRN (12:09)
[2023-03-27] MEDS ORDERED: MEPERIDINE HCL 25 MG/ML CARP/VIAL IV PRN (12:09)
[2023-03-27] MEDS ORDERED: ePHEDrine sulfate 50 MG/ML AMP IV PRN (12:09)
[2023-03-27] MEDS ORDERED: ATROPINE SULFATE 0.1 MG/ML 10ML SYR IV PRN (12:09)
[2023-03-27] MEDS ORDERED: SCOPOLAMINE 1 MG TDSY TD ONE (12:19)
[2023-03-27] MEDS ORDERED: DEXAMETHASONE SOD INJ 4 MG/ML VIAL ONE (12:24)
[2023-03-27] MEDS ORDERED: SUCCINYLCHOLINE CHLORIDE 20 MG/ML 10 ML VIAL IV ONE (12:24)
[2023-03-27] MEDS ORDERED: LIDOCAINE 2% 2 ML VIAL/AMP(20MG/ML) INFIL ONE (12:25)
[2023-03-27] MEDS ORDERED: MIDAZOLAM HCL 1 MG/ML 2ML VIAL ONE (12:25)
[2023-03-27] MEDS ORDERED: GLYCOPYRROLATE 0.2 MG/ML VIAL ONE (12:25)
[2023-03-27] MEDS ORDERED: fentaNYL citrate PF 100 MCG/2 ML VIAL ONE ×2 (12:25→14:22)
[2023-03-27] MEDS ORDERED: ROCURONIUM BROMIDE 10 MG/ML 5 ML VIAL IV ONE (12:25)
[2023-03-27] MEDS ORDERED: PROPOFOL IV EMULSION 10 MG/ML 20 ML VIAL IV ONE (12:25)
--- NOTE | 2023-03-27 13:13 | Surgery Progress Note ---
Date of Service March 27, 2023 Assessment & Plan (1) Acute cholecystitis: Plan: 28-year-old female with acute cholecystitis. Symptoms are improved with her blood cell count is normal patient remains tender. No fevers no chills no transaminitis. Plan is for laparoscopic cholecystectomy today. The details of the procedure have been explained to the patient including the risks and benefits. She expressed understanding of this explanation and all of her questions were answered. Consent was obtained. Admission and Anticipated Discharge Date Admission Date: March 27, 2023 Subjective This patient was seen and examined this morning. She says that her abdominal pain has lessened substantially but she is still quite tender in the right upper quadrant. She denies any further nausea or vomiting. She is remain n.p.o. Physical Exam Constitutional: + obese, cooperative and comfortable; no acute distress and not ill appearing Respiratory: normal respiratory effort; no respiratory distress, no labored breathing and does not use accessory muscles Gastrointestinal (Abdomen): Inspection/Auscultation: + significant pannus; no abdominal surgical incision Percussion/Palpation: + abdomen tender (Right upper quad) and abdomen soft; no guarding and abdomen not rigid Psychiatric: Orientation: alert and oriented x 3 Thought Process: clear/coherent thought process Judgment: good judgement Results & Data Vital Signs (Past 12 Hours) Vital Signs Temp Pulse Resp BP Pulse Ox O2 Del Method 03/27/23 12:01 36.8 C 92 H 20 114/96 96 Room Air 03/27/23 07:20 Room Air 03/27/23 07:36 36.7 C 105 H 18 137/87 97 Room Air 03/27/23 01:40 Room Air PG Care Time/CCT Total # of Minutes Spent Total Time Spent with Patient: Total time spent is greater than 50% in coordination of care (as documented) at patient's floor/unit and/or counseling patient: Coding Level of Care Code 93359 SUB INP/OBS CARE 09/17MIN Diagnoses Acute cholecystitis K81.0
[2023-03-27] MEDS ORDERED: BUPIVACAINE/EPINEPHRINE 0.5% MPF 1:200,000 30 ML VIAL ONE (13:19)
[2023-03-27] MEDS ORDERED: diphenhydrAMINE 50 MG/ML VIAL ONE (14:10)
[2023-03-27] MEDS ORDERED: ALBUTEROL HFA 8 GM INHALER INH ONE (14:34)
[2023-03-27] MEDS ORDERED: HYDROmorphone INJ 2 MG/ML SYR/VIAL ONE (14:39)
[2023-03-27] MEDS ORDERED: SUGAMMADEX SODIUM 200 MG/2 ML VIAL IV ONE (14:48)
[2023-03-27] MEDS ORDERED: KETOROLAC 30 MG/ML VIAL ONE (15:04)
--- NOTE | 2023-03-27 15:23 | Operative Report ---
PG Post Operative Report Pre & Post Diagnosis Operation Date: 03/27/23 08:45 Pre-Op Diagnosis: Acute cholecystitis Post-Op Diagnosis: Acute cholecystitis I identified the patient and participated in the time-out.: Yes Procedure Operation Date: 03/27/23 08:45 Actual Procedures p Laparoscopic Cholecystectomy(Not Applicable) - Vance Ramsay DO Surgeon Vance Ramsay DO Exchange Underwriting Consultant DRAGAN Jaffe Estimated Blood Loss 3 Findings Consistent with Post-Op Diagnosis Specimens Gallbladder Drains None Anesthesia Type General Complications None Indications Acute cholecystitis Description of Procedure The patient was brought back to the operating room placed on the operating table in supine position. SCDs were applied to bilateral lower extremities. She was connected to cardiac and oxygen monitoring. Supplemental O2 was provided by anesthesia. The patient was administered general anesthesia and a secure airway was obtained. The abdomen was prepped and draped in typical sterile fashion. A timeout was conducted. After injecting local anesthetic into the skin and subcutaneous tissues just superior to the umbilicus, a small stab incision was made and a Veress needle was inserted into the intra-abdominal space. This was confirmed using the saline drop test. CO2 insufflation was initiated to create pneumoperitoneum to a goal pressure of 15. Once this was established the Veress needle was removed and a 5 mm laparoscope was inserted using direct visualization house and a 5 mm Visiport trocar. An area was selected at the e pigastric region for the 11 mm trocar. Local anesthetic was again inserted into the skin and subcutaneous tissues. An incision large enough to hold the 11 mm trocar was made and an 11 mm trocar was inserted under direct visualization. 2 additional right subcostal 5 mm trocars were inserted using the same technique. A very distended gallbladder was identified in the right upper quadrant. The p atient was positioned in reverse Trendelenburg and left side down. The fundus of the gallbladder was grasped and elevated superior laterally. Soft adhesions to the gallbladder were taken down using blunt dissection with the [place] dissector. The infundibulum of the gallbladder was then grasped and retracted inferior laterally. Careful alternating blunt and cautery dissection was used to expose the cystic duct and its direct exit from the gallbladder. This structure was ligated using two 5 mm clips proximally and one 5 mm clip distally. The cystic duct was then transected. Further dissection ensued to further dissect around the cystic artery which had already been well in view. This structure was ligated and transected in the same manner as the cystic duct. The gallbladder was cauterized away from the liver bed leaving the cystic plate and intact. The gallbladder was very distended and stiff to retract. There was compromise of the gallbladder wall and dark green sponge was released. Dissection of the gallbladder away from the liver bed was completed. The gallbladder was placed in an Endo Catch bag and removed through the epigastric incision. This was difficult due to a large stone in the gallbladder. The gallbladder was cut open within the Endo Catch bag remaining bile was suctioned and a Cyndi clamp was inserted to crush the stone. I was then able to remove th e gallbladder from the epigastric incision without widening the incision. The gallbladder was placed in a labeled container and sent to pathology for further analysis. The operating table was returned to the neutral position. The liver bed was assessed for hemostasis. There was no bleeding. The area around the hepatic space was copiously irrigated with 2 L of saline and suctioned away. The liver bed was again checked for hemostasis and there Was no bleeding. All instruments were removed. CO2 insufflation was discontinued to relieve pneumoperitoneum and excess air was released from the abdomen. Trocars and the laparoscope were removed. The epigastric incision was copiously irrigated using saline irrigation. The subcutaneous tissue at the epigastric site was reapproximated using 3-0 Vicryl suture. The skin at all 4 incisions were closed with 4-0 Vicryl suture. The incisions were all sealed with Dermabond. The patient tolerated the procedure well. She was awakened from anesthesia and the secure airway was removed. The drapes were removed and an abdominal binder was applied. The patient was transferred to recovery in stable condition I attest to the content of the Intraoperative Record and any orders documented therein. Any exceptions are noted below.
[2023-03-27] MEDS: fentaNYL citrate PF 100 MCG/2 ML VIAL IV PRN ×2 (15:40→15:45)
--- NOTE | 2023-03-27 15:59 | Anesthesiology Progress Note ---
Date of Service March 27, 2023 Anesthesia Post Procedure Vital Signs Vital Signs: Temp Pulse Pulse Resp BP BP Pulse Ox 03/27/23 15:40 100 H 30 H 160/90 H 94 03/27/23 15:50 100 H 26 H 166/87 H 94 03/27/23 15:30 102 H 23 156/91 H 96 03/27/23 15:21 37.2 C 100 H 16 156/82 H 96 03/27/23 12:01 36.8 C 92 H 20 114/96 96 03/27/23 07:20 03/27/23 07:36 36.7 C 105 H 18 137/87 97 03/27/23 01:40 03/27/23 01:09 36.6 C 90 18 137/87 96 03/27/23 00:19 22 98 03/26/23 22:51 97 03/26/23 22:49 96 H 24 113/74 97 03/26/23 21:32 113 H 03/26/23 20:57 36.8 C 111 H 16 142/85 H 98 O2 Del Method O2 Flow Rate 03/27/23 15:40 Oxymask 3 03/27/23 15:50 Oxymask 3 03/27/23 15:30 Oxymask 5 03/27/23 15:21 Oxymask 7 03/27/23 12:01 Room Air 03/27/23 07:20 Room Air 03/27/23 07:36 Room Air 03/27/23 01:40 Room Air 03/27/23 01:09 Room Air 03/27/23 00:19 Room Air 03/26/23 22:51 Room Air 03/26/23 22:49 Room Air 03/26/23 21:32 03/26/23 20:57 Room Air Pain Intensity Medial Abdomen: Pain Intensity: 5 Transfer of Care Handoff Completed per policy Notes Mental Status: alert / awake / arousable and participated in evaluation Patient Amnestic to Procedure: Yes Nausea / Vomiting: adequately controlled Pain: adequately controlled Airway Patency, RR, SpO2: stable & adequate BP & HR: stable & adequate Hydration State: stable & adequate Anesthetic Complications: no major complications apparent and Pt Satisfied with anesthetic care
[2023-03-27] MEDS ORDERED: oxyCODONE HCL IR 5 MG TAB (IMMEDIATE RELEASE) PO PRN ×2 (16:40)
[2023-03-27] MEDS ORDERED: cefTRIAXone SODIUM 2,000 MG in DEXTROSE 5% 50 ML IV SCH (22:00)
--- NOTE | 2023-03-30 09:04 | Coding Query ---
BMI To promote full compliance with coding requirements relating to patient care, physician participation is requested in all cases of elevator constructor electric uncertainty. Please assist us with the question(s) below: Please place an X within the parenthesis (x). If other, please document: BMI 51.1 was documented in this record for this patient. If the BMI is significant, please check the box that provides a more specific associated diagnosis: ( ) Overweight/Obese ( ) Obesity (X ) Morbid obesity ( ) Obesity Hypoventilation Syndrome (OHS) ( ) Heathy weight, not significant ( ) Underweight/Thin ( ) Other, please specify Thank you Hemalatha ALVAREZ
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
== END 2023-03-27 18:06 | disposition home or self-care (01) | DRG 418 ==
LOC: ED 20:55 → INTOOBSV 03-27 → 3E 03-27
DX: F41.9 Anxiety disorder, unspecified; E66.01 Morbid (severe) obesity due to excess calories; Z79.899 Other long term (current) drug therapy; K80.10 Calculus of gallbladder with chronic cholecystitis without obstruction; Z68.43 Body mass index [BMI] 50.0-59.9, adult; Z86.711 Personal history of pulmonary embolism